=== PATIENT | male | born 1955 | race Native Hawaiian/Other Pacific Islander ===

== ENCOUNTER 2019-06-27 09:38 | Outpatient (CLI) | payer OTHER | END 2019-06-27 19:12 | disposition home or self-care (01) | LOC: RAD 09:38 | DX: G93.0 Cerebral cysts (principal); R42 Dizziness and giddiness; I65.29 Occlusion and stenosis of unspecified carotid artery; E11.9 Type 2 diabetes mellitus without complications; I10 Essential (primary) hypertension; E78.00 Pure hypercholesterolemia, unspecified; R51 Headache; E07.89 Other specified disorders of thyroid; M54.30 Sciatica, unspecified side ==